=== PATIENT | male | born 1965 | race Caucasian/White ===

== ENCOUNTER → 2019-07-13 | Outpatient (CLI) | payer OTHER ==
--- NOTE | 2019-07-17 09:08 | PCVCIMAG ---
APPROVED REPORT Study performed: 07/13/2019 15:23:08 Exam: Stress Echocardiogram Indication: Chest pain , Dyspnea, decreased exercise tolerence Patient Location: Echo lab Stress Nurse: Elodia Wong RN Room #: 2 Status: routine Ht: 6 ft 1 in HR: 74 bpm BP: 138/64 mmHg Rhythm: NSR, Incomplete RBBB Medical History Previous Cardiac Procedures: none Pretest Chest Pain Characteristics: No chest pain Exercise History: Indeterminate Procedure The patient underwent an Exercise Stress Test using the Chauncey Protocol. Blood pressure, heart rate, and EKG were monitored. An Echocardiogram was performed by network control technician in four stages in quad fashion. At peak stress, four selected images were obtained and placed side by side with resting images for comparison. Stress Test Details Stress Test: Exercise stress testing was performed using a Chauncey protocol. HR Resting HR: 74 bpmMax Heart Rate (APMHR): 167 bpm Max HR Achieved: 150 bpmTarget HR (85% APMHR): 141 bpm % of APMHR: 89 Recovery HR: 96 bpm HR response to stress: Normal HR response to stress BP Resting BP: 138/64 mmHg Max BP: 140/82 mmHg Recovery BP: 118/76 mmHg BP response to stress: Normal blood pressure response to stress. ECG Resting ECG: Sinus Rhythm Stress ECG: Sinus Rhythm, NSSTT changes ST Change: Horizontal ST depression Maximum ST Deviation: -2.35 mm Arrhythmia: None Recovery ECG: Sinus Rhythm, NSSTT changes Recovery ST Change: Non-ischemic Recovery ST Deviation: -1.35 mm Recovery Arrhythmia: None Clinical Reason for Termination: Maximal effort Stress Symptoms: cp Exercise duration: 7 min 23 sec Exercise capacity: 10.1 METs Angina Score: Non-Limiting No complications. Symptoms resolved during recovery. Stress ECG Conclusion 1. subjectively negative for ischemia 2. electrocardiographically negative for ischemia 3. average functional capacity Garcia Treadmill Score is 14.8 which is Low risk. Pre-Stress Echo The resting Echocardiogram showed normal left ventricular contractility with an estimated Ejection Fraction of about 55-60%. Normal wall motion in all segments on baseline images. Post-Stress Echo The stress Echocardiogram showed normal left ventricular contractility with an estimated Ejection Fraction of about 65-70%. Normal augmentation of wall motion in all segments on post stress images. Clinical No clinical or ECG evidence for ischemia. Conclusion Clinical Response: Equivocal Exercise Capacity: Average Stress ECG Response: Indeterminant Stress Echo Images: Non-ischemic No echocardiographic evidence for exercise induced ischemia. Normal stress echocardiogram with maximal exercise stress. Normal color doppler. No regurgitation or stenosis present on pulmonic, mitral, tricuspid and aortic valves. 1. low risk study <Conclusion> No echocardiographic evidence for exercise induced ischemia. Normal stress echocardiogram with maximal exercise stress. Normal color doppler. No regurgitation or stenosis present on pulmonic, mitral, tricuspid and aortic valves. 1. low risk study
== END | disposition home or self-care (01) ==
LOC: PCVCIMAG 15:37
PROVIDERS: ATTEND Internal Medicine
DX: R06.09 Other forms of dyspnea (principal); E78.5 Hyperlipidemia, unspecified; I45.19 Other right bundle-branch block; M10.00 Idiopathic gout, unspecified site
CPT/HCPCS: 93325; 93351